=== PATIENT | female | born 1990 | race Two or more races ===

== ENCOUNTER 2022-08-21 15:50 | Outpatient (CLI) | payer MEDICAID ==
[2022-08-21 16:45] LABS: BASOPHILS # (AUTO) 0.1 10^3/uL (0.0-0.1); BASOPHILS % (AUTO) 0.7 %; EOSINOPHILS # (AUTO) 0.2 10^3/uL (0.0-0.7); EOSINOPHILS % (AUTO) 2.3 %; HCT - HEMATOCRIT 40.4 % (37.0-47.0); HGB - HEMOGLOBIN 13.2 g/dL (12.0-16.0); LYMPHOCYTES # (AUTO) 2.6 10^3/uL (1.5-3.5); LYMPHOCYTES % (AUTO) 33.6 %; MEAN CORPUSCULAR HEMOGLOBIN 28.1 pg (27.0-31.0); MEAN CORPUSCULAR HGB CONC 32.7 g/dL (32.0-36.0); MEAN CORPUSCULAR VOLUME 86.1 fL (81.0-99.0); MEAN PLATELET VOLUME 10.2 fL (7.9-10.8); MONOCYTES # (AUTO) 0.5 10^3/uL (0.0-1.0); NEUTROPHILS # (AUTO) 4.4 10^3/uL (1.5-6.6); NEUTROPHILS % (AUTO) 57.1 %; PLT - PLATELET COUNT 211 10^3/uL (130-450); RED BLOOD COUNT 4.69 10^6/uL (4.20-5.40); RED CELL DISTRIBUTION WIDTH 13.5 % (12.0-15.0); WHITE BLOOD COUNT 7.7 x10^3/uL (4.8-10.8)
[2022-08-23 05:13] LABS: HBsAG SCREEN Negative (Negative); HCV AB Non Reactive (Non Reactive); HIV SCREEN 4TH GENERATION Non Reactive (Non Reactive)
[2022-08-23 08:10] LABS: RPR Non Reactive (Non Reactive)
[2022-08-23 20:08] LABS: VARICELLA-ZOSTER AB IGG 173 index (Immune >165)
== END 2022-08-21 15:51 | disposition home or self-care (01) ==
LOC: LAB 15:50
PROVIDERS: ATTEND Nurse Practitioner
DX: Z32.01 Encounter for pregnancy test, result positive (principal)
CPT/HCPCS: 36415; 84702; 85025; 86592; 86762; 86787; 86803; 86850; 86900; 86901; 87086; 87340; 87389

== ENCOUNTER 2022-08-22 08:00 | Outpatient (CLI) | payer MEDICAID | END 2022-08-22 23:59 | disposition home or self-care (01) | LOC: LAB.WC 08:00 | PROVIDERS: ATTEND Nurse Practitioner | DX: Z32.01 Encounter for pregnancy test, result positive (principal) | CPT/HCPCS: 87086 ==

== ENCOUNTER 2022-08-24 18:12 | Outpatient (CLI) | payer MEDICAID ==
[2022-08-24 18:57] LABS: BASOPHILS % (AUTO) 0.5 %; EOSINOPHILS # (AUTO) 0.2 10^3/uL (0.0-0.7); EOSINOPHILS % (AUTO) 2.5 %; HGB - HEMOGLOBIN 12.8 g/dL (12.0-16.0); LYMPHOCYTES # (AUTO) 2.7 10^3/uL (1.5-3.5); LYMPHOCYTES % (AUTO) 33.3 %; MEAN CORPUSCULAR HEMOGLOBIN 28.3 pg (27.0-31.0); MEAN CORPUSCULAR HGB CONC 32.8 g/dL (32.0-36.0); MEAN CORPUSCULAR VOLUME 86.3 fL (81.0-99.0); MEAN PLATELET VOLUME 10.1 fL (7.9-10.8); MONOCYTES # (AUTO) 0.5 10^3/uL (0.0-1.0); MONOCYTES % (AUTO) 5.9 %; NEUTROPHILS # (AUTO) 4.7 10^3/uL (1.5-6.6); NEUTROPHILS % (AUTO) 57.6 %; PLT - PLATELET COUNT 215 10^3/uL (130-450); RED BLOOD COUNT 4.52 10^6/uL (4.20-5.40); RED CELL DISTRIBUTION WIDTH 13.6 % (12.0-15.0); WHITE BLOOD COUNT 8.2 x10^3/uL (4.8-10.8)
[2022-08-26 02:07] LABS: HIV SCREEN 4TH GENERATION Non Reactive (Non Reactive)
[2022-08-26 06:10] LABS: HBsAG SCREEN Negative (Negative); HCV AB Non Reactive (Non Reactive)
[2022-08-26 07:09] LABS: RPR Non Reactive (Non Reactive)
[2022-08-26 12:08] LABS: VARICELLA-ZOSTER AB IGG 152 index (Immune >165)
== END 2022-08-24 18:13 | disposition home or self-care (01) ==
LOC: LAB 18:12
PROVIDERS: ATTEND Nurse Practitioner
DX: Z32.01 Encounter for pregnancy test, result positive (principal)
CPT/HCPCS: 36415; 84702; 85025; 86592; 86762; 86787; 86803; 86850; 86900; 86901; 87340; 87389

== ENCOUNTER 2022-08-28 21:49 | Emergency (ER) | payer MEDICAID ==
--- NOTE | 2022-08-28 22:05 | ED Physician Documentation ---
PD HPI HEENT - Stated complaint Stated Complaint: R TOOTH PAIN - History obtained from History obtained from: Patient - Additional information Additional information: HPI from patient. Patient complains of few days of right sided tooth pain. She cannot localize it to anyone tooth, but generally feels it involves one or more of the right maxillary molars (she is pointing to these teeth rather than verbalizing specific teeth). Since this morning, she has had significantly worsening pain in the area which, during the day, has spread to involve the right jaw. There is no visible swelling. Patient denies fever. The pain is worse with chewing, palpation of the right upper teeth, and patient says even air passing over the teeth exacerbates the pain. Patient is approximately 5 weeks . Patient used Tylenol without relief. She had noticeable but transient/brief pain relief with Orajel and an wedh-leo-[id number] clove extract preparation. Review of Systems Constitutional: denies: Fever Throat: reports: Dental pain / toothache. denies: Sore throat PD PAST MEDICAL HISTORY - Past Medical History Past Medical History: No - Present Medications Home Medications: Ambulatory Orders Medication Instructions Recorded Confirmed Acetaminophen [Tylenol] 650 mg PO Q6H PRN #30 tab 07/17/22 Ibuprofen [Motrin] 800 mg PO Q8H PRN #30 tablet 07/17/22 methocarbamoL [Robaxin] 500 mg PO Q6H PRN #20 tablet 07/17/22 Acetaminophen/Cod 300/30 [Tylenol 1 - 2 each PO Q4-6H PRN #14 tablet 08/28/22 #3] Amox/Clav 875/125 [Augmentin 1 tablet PO Q12H 5 Days #10 tablet 08/28/22 875/125 Tab] - Allergies Allergies/Adverse Reactions: Allergies Allergy/AdvReac Type Severity Reaction Status Date / Time No Known Drug Allergies Allergy Verified 08/08/22 11:41 PD ED PE NORMAL - Vitals Vital signs reviewed: Yes - General General: Alert and oriented X 3, No acute distress, Well developed/nourished - HEENT HEENT: Moist mucous membranes PD ED PE EXPANDED - HEENT HEENT: Dentition normal, Other (overall good dentition with some fillings noted. There is a filling in place in #6 which is tender to percussion. There is no gingival swelling, erythema, or fluctuance. symmetric fascies) Results - Vitals Vitals: Vital Signs - 24 hr 08/28/22 21:55 Temperature 36.5 C Heart Rate 78 Respiratory 16 Rate Blood Pressure 127/76 O2 Saturation 100 Oxygen O2 Source Room air PD Medical Decision Making - ED course Complexity details: considered differential, d/w patient ED course: Patient complains of dental pain with an unremarkable physical exam except for significant tenderness to percussion of tooth #6. Although there is no overt evidence of dental infection, she is being provided a dose of Augmentin in the E D and a 5-day, twice daily course for same to cover possible infectious etiology. We discussed options for pain control, in particular in setting of . Shared decision making regarding risks and benefits of the various analgesics that I can provide resulted in decision to provide prescription for Tylenol #3 with first dose in the emergency department (patient is being driven home). Return precautions are discussed, and I advised her to continue to pursue follow-up with a dentist, next available appointment. I am prescribing a short course of short-acting opioid pain medication for this patient. I have reviewed the patients BROADLOOM WEAVER and no concerning findings were noted. I have discussed that the opioids are for short term therapy only, and will not be refilled from the ED. Departure - Departure Disposition: 01 Home, Self Care Clinical Impression: Toothache Condition: Good Instructions: ED Tooth Pain Prescriptions: Amox/Clav 875/125 [Augmentin 875/125 Tab] 1 tablet PO Q12H 5 Days #10 tablet Acetaminophen/Cod 300/30 [Tylenol #3] 1 - 2 each PO Q4-6H PRN #14 tablet PRN Reason: Pain 5-7 Comments: I have electronically submitted prescriptions for Augmentin (antibiotic) and Tylenol #3 (Tylenol with codeine) to the [facility] in [place]. Follow-up with your dentist, next available appointment, for reevaluation. If you take Tylenol in addition to the Tylenol #3, be sure to keep track of the total/combined amount of tylenol you are taking and not to exceed the daily recommended maximum dose of acetaminophen (4,000 mg). I am prescribing a short course of narcotic pain medication for you. These are potentially dangerous and addictive medications that should be used carefully. These medications may constipate you. Take an ddjg-kso-fgfmqab stool softener (docusate) twice daily with plenty of water while taking these medications. If you go 24 hours without a bowel movement, take yque-fcf-[id number] miralax, per package instructions. Do not drink or drive while taking these medications. If you received narcotic or sedating medications while in the emergency department, do not drive for 24 hours. Store this medication in a safe, secure place and out of reach of children. It is a violation of federal law to give or sell this medication to another person or to use in a manner other than prescribed. The ED will not refill narcotic prescriptions, including prescriptions lost or stolen. To dispose of unwanted medications: 1. [facility] at [address] in [place] has a medication drop box. They accept prescription medications (in pill form) Sunday through Sunday 9:00 a.m. to 5:00 p.m. 2. The [facility] [employer] accepts prescription medications (in pill form only) for disposal year round. Call for more information. 3. Contact the [facility] for the next [facility] sponsored prescription drug collection event. , [phone], or [phone]; Discharge Date/Time: 08/28/22 23:14
[2022-08-28 22:07] VITALS: BP 127/76
[2022-08-28] MEDS ORDERED: ACETAMINOPHEN/CODEINE 300 MG/30 MG TABLET PO STA (22:27)
[2022-08-28] MEDS ORDERED: AMOX/CLAV 875 MG/125 MG TABLET PO STA (22:27)
== END 2022-08-28 23:14 | disposition home or self-care (01) ==
LOC: ED 21:49
DX: O26.891 Other specified pregnancy related conditions, first trimester (principal); Z3A.01 Less than 8 weeks gestation of pregnancy; K08.89 Other specified disorders of teeth and supporting structures
CPT/HCPCS: 99282; 99283; A9270

== ENCOUNTER 2022-09-07 19:16 | Outpatient (CLI) | payer MEDICAID ==
--- NOTE | 2022-09-08 10:26 | Ultrasound Report ---
PROCEDURE: OB First Trimester w/TV INDICATIONS: POSITIVE TEST OUTSIDE/PRIOR DATING DATA: Last menstrual period (LMP): Unknown. LMP-based estimated date of delivery ([place]): N/A. First dating scan (date and location): 09/07/2022. Estimated date of delivery ([place]) from first dating scan: 04/28/2023. TECHNIQUE: Real-time scanning was performed of the fetuses and maternal pelvic organs, with image documentation. Endovaginal scanning: Performed for better visualization of the fetuses and maternal adnexal structu res. COMPARISON: None. FINDINGS: GENERAL: An intrauterine diamniotic dichorionic twin is present, as evidenced by separate p lacental sites and/or intervening membrane thickness of greater than 2 mm at this early gestational a ge. Gestational sac hemorrhage is seen measuring up to 2.4 x 1.7 x 2.7 cm. Embryo A: pole is seen with crown-rump length of 0.6 cm, giving an estimated gestational age o f 6 weeks 3 days. Heart rate: 117 beats per minute Embryo B: pole is seen with crown-rump length of 0.8 cm, giving an estimated gestational age o f 6 weeks 5 days. Heart rate: 129 bpm Measurement variability in dating: +/- 4 weeks by LMP, +/- 7 days by mean sac diameter (use before 6 weeks gestation if crown-rump length not able to be measured), +/- 5 days by crown-rump length (6-12 weeks gestation). Maternal organs: There appears to be 2 corpus luteum type cysts in the right ovary. IMPRESSION: Live intrauterine dichorionic diamniotic twin . Estimated gestational age of the larger twin is 6 weeks 5 days, giving an ultrasound [place] of 04/28/2023. Reviewed by: Carlyle Horne MD on 09/08/2022 10:25 AM PDT Approved by: Carlyle Horne MD on 09/08/2022 10:25 AM PDT Station ID: [id number]
== END 2022-09-07 19:17 | disposition home or self-care (01) ==
LOC: DI 19:16
PROVIDERS: ATTEND Nurse Practitioner
DX: O30.041 Twin pregnancy, dichorionic/diamniotic, first trimester (principal); Z3A.01 Less than 8 weeks gestation of pregnancy

== ENCOUNTER 2022-09-18 08:00 | Outpatient (CLI) | payer MEDICAID ==
[2022-09-18 18:13] LABS: CHLAMYDIA TRACHOMATIS DNA NEGATIVE (NEGATIVE); NEISSERIA GONORRHOEAE DNA NEGATIVE (NEGATIVE); TRICHOMONAS VAGINALIS DNA NEGATIVE (NEGATIVE)
== END 2022-09-18 23:59 | disposition home or self-care (01) ==
LOC: LAB.WC 08:00
PROVIDERS: ATTEND Nurse Practitioner
DX: Z11.3 Encounter for screening for infections with a predominantly sexual mode of transmission (principal)
CPT/HCPCS: 87491; 87591; 87661

== ENCOUNTER 2022-09-27 10:00 | Outpatient (CLI) | payer MEDICAID | END 2022-09-27 10:15 | disposition home or self-care (01) | LOC: LAB.N 10:00 | PROVIDERS: ATTEND Family Medicine | DX: N36.8 Other specified disorders of urethra (principal) | CPT/HCPCS: 87255 ==

== ENCOUNTER 2022-10-31 10:19 | Emergency (ER) | payer MEDICAID ==
--- NOTE | 2022-10-31 11:10 | ED Physician Documentation ---
PD HPI URI - Stated complaint Stated Complaint: C+ VOMITING/SOA - Chief complaint Chief Complaint: Abd Pain - History obtained from History obtained from: Patient - History of Present Illness Timing - onset: Yesterday Timing duration: Days (2) Timing details: Abrupt onset, Still present Associated symptoms: Fever, Chills, Dry cough, NVD (nausea and vomiting repetitively since yesterday into today. No diarrhea.) Contributing factors: No: Sick contact, COPD / asthma Improves by: No: Medication Similar symptoms before: Has not had sx before Review of Systems Constitutional: reports: Fever, Chills, Myalgias Nose: reports: Rhinorrhea / runny nose, Congestion Throat: denies: Sore throat Cardiac: denies: Chest pain / pressure Respiratory: reports: Dyspnea, Cough. denies: Wheezing GI: reports: Nausea, Vomiting. denies: Diarrhea : reports: Now EGA (14-15 weeks with twins.). denies: Vaginal bleeding Neurologic: reports: Generalized weakness. denies: Near syncope, Altered mental status, Headache PD PAST MEDICAL HISTORY - Past Medical History Past Medical History: No Cardiovascular: None Respiratory: None Neuro: None Endocrine/Autoimmune: None GI: None EMPLOYMENT MANAGER: None : None HEENT: None Musculoskeletal: None Derm: None - Past Surgical History Past Surgical History: No - Present Medications Home Medications: Ambulatory Orders Medication Instructions Recorded Confirmed Acetaminophen [Tylenol] 650 mg PO Q6H PRN #30 tab 07/17/22 Ibuprofen [Motrin] 800 mg PO Q8H PRN #30 tablet 07/17/22 methocarbamoL [Robaxin] 500 mg PO Q6H PRN #20 tablet 07/17/22 Acetaminophen/Cod 300/30 [Tylenol 1 - 2 each PO Q4-6H PRN #14 tablet 08/28/22 #3] Amox/Clav 875/125 [Augmentin 1 tablet PO Q12H 5 Days #10 tablet 08/28/22 875/125 Tab] Albuterol Sulf [Ventolin Hfa 1 - 2 puffs INH Q4HR PRN #1 each 10/31/22 Inhaler] Ondansetron Odt [Zofran] 4 mg TL Q6H PRN #10 tablet 10/31/22 Ondansetron Odt [Zofran] 4 mg TL Q6H PRN #20 tablet 10/31/22 - Allergies Allergies/Adverse Reactions: Allergies Allergy/AdvReac Type Severity Reaction Status Date / Time No Known Drug Allergies Allergy Verified 10/31/22 10:40 - Social History Does the pt smoke?: No Smoking Status: Never smoker Does the pt drink ETOH?: No Does the pt have substance abuse?: Yes Substance Use and Type: Marijuana, CBD oil / Products - Immunizations Immunizations are current?: Yes PD ED PE NORMAL - Vitals Vital signs reviewed: Yes - General General: Alert and oriented X 3, No acute distress, Well developed/nourished - HEENT HEENT: Pharynx benign. No: Moist mucous membranes - Neck Neck: Supple, no meningeal sign, No adenopathy - Cardiac Cardiac: RRR, No murmur - Respiratory Respiratory: Clear bilaterally - Abdomen Abdomen: Soft, Non tender, Other (bedside US showing twins with size c/w dates, movement of both, and normal visualized heart beats.) - Female Female : Deferred - Rectal Rectal: Deferred - Back Back: No CVA TTP - Derm Derm: Normal color, Warm and dry - Neuro Neuro: Alert and oriented X 3, No motor deficit, Normal speech Results - Vitals Vitals: Vital Signs - 24 hr 10/31/22 10/31/22 10/31/22 10:36 14:03 15:36 Temperature 36.6 C 37.2 C Heart Rate 95 92 75 Respiratory 22 15 19 Rate Blood Pressure 138/79 H 130/83 H 138/78 H O2 Saturation 100 99 99 Oxygen O2 Source Room air - Labs Labs: Laboratory Tests 10/31/22 11:50 Sodium 132 L Potassium 3.4 L Chloride 103 Carbon Dioxide 22 Anion Gap 7.0 BUN 4 L Creatinine 0.5 L Estimated GFR (MDRD) 144 Glucose 81 Calcium 9.0 Magnesium 1.5 L Total Bilirubin 0.2 AST 19 ALT 22 Alkaline Phosphatase 53 Total Protein 6.7 Albumin 3.7 Globulin 3.0 Albumin/Globulin Ratio 1.2 Lipase 18 PD Medical Decision Making - ED course Complexity details: reviewed results, considered differential, d/w patient, d/w advanced manufacturing consultant (I talked with on-call MEDICAL I D SALES. The provided provider stated there not typically doing Paxlovid for with the current time.) Reviewed Lab Results: The patient's electrolytes and blood sugar and kidney function show low potassium and magnesium. Can give supplement in ER. I did do a bedside ultrasound which showed the presence of both fetuses in good position with movement and heart rates visible. Patient given 2 liters IV lfuid for hydration. Zofran and Toradol for symptoms. Feeling improved. Will treat symptoms with zofran, albuterol. Leaning against Paxlovid as less useful with current variants and MEDICAL I D SALES said not using much in persons currently. She is feeling better and hungry after IV fluids and meds here. Departure - Departure Disposition: 01 Home, Self Care Clinical Impression: COVID, Hypokalemia, Hypomagnesemia, Dehydration Nausea and vomiting Qualifiers: Vomiting type: unspecified Qualified Code(s): R11.2 - Nausea with vomiting, unspecified Dyspnea Qualifiers: Dyspnea type: shortness of breath Qualified Code(s): R06.02 - Shortness of breath Qualifiers: Weeks of gestation: 14 weeks Qualified Code(s): Z3A.14 - 14 weeks gestation of Condition: Stable Record reviewed to determine appropriate education?: Yes Follow-Up: Zaynab Chavez ARNP [Primary Care Provider] - Prescriptions: Albuterol Sulf [Ventolin Hfa Inhaler] 1 - 2 puffs INH Q4HR PRN #1 each PRN Reason: Shortness Of Air/Wheezing Ondansetron Odt [Zofran] 4 mg TL Q6H PRN #20 tablet PRN Reason: Nausea / Vomiting Ondansetron Odt [Zofran] 4 mg TL Q6H PRN #10 tablet PRN Reason: Nausea / Vomiting Comments: Continue with your usual medications. Small frequent fluids to maintain hydration. You were given IV fluids as well as medication for nausea here. You are given a some supplemental magnesium and potassium as these were the low normal on your blood test. Have potassium containing foods in your diet over the next week or so. Continue your magnesium supplement. Ondansetron/Zofran if needed for nausea. I would suggest your an albuterol inhaler 2 puffs 3-4 times daily over the next week or so to help with breathing and extra times if needed. Return to the ER or follow-up with your MEDICAL I D SALES if generally worsening symptoms. Otherwise expect illness for probably 5 to 7 days with the COVID. I did provide a work note. I sent your prescriptions up to your preferred pharmacy. I talked with the on-call MEDICAL I D SALES and the opinion was that they are not using antiviral medicines currently with the COVID strains. The antivirals such as Paxlovid are less effective with the more current strains of COVID. Forms: PCP List, Activity restrictions Discharge Date/Time: 10/31/22 15:37
[2022-10-31] MEDS ORDERED: KETOROLAC 15 MG/ML VIAL IVP STA (11:33)
[2022-10-31] MEDS ORDERED: SODIUM CHLORIDE 0.9% 1,000 ML IV STA ×2 (11:33→11:34)
[2022-10-31 12:11] LABS: ALBUMIN 3.7 g/dL (3.2-5.5); ALBUMIN/GLOBULIN RATIO 1.2 (1.0-2.2); BILIRUBIN,TOTAL 0.2 mg/dL (0.2-1.0); CREATININE 0.5 mg/dL (0.6-1.3); MAGNESIUM 1.5 mg/dL (1.7-2.3); POTASSIUM 3.4 mmol/L (3.5-4.5); TOTAL PROTEIN 6.7 g/dL (6.4-8.9)
[2022-10-31] MEDS: ONDANSETRON 4 MG/2 ML VIAL IVP STA (12:27)
[2022-10-31] MEDS ORDERED: POTASSIUM BICARB 25 MEQ TABLET PO STA (13:19)
[2022-10-31] MEDS ORDERED: MAGNESIUM SULFATE 2 GRAM 2 GM/50 ML BAG IV ONE (13:19)
[2022-10-31 14:07] VITALS: O2SAT 99
[2022-10-31 15:46] VITALS: BP 138/78
== END 2022-10-31 15:37 | disposition home or self-care (01) ==
LOC: ED 10:19
DX: O98.512 Other viral diseases complicating pregnancy, second trimester (principal); U07.1 COVID-19; Z3A.14 14 weeks gestation of pregnancy; O26.892 Other specified pregnancy related conditions, second trimester; E83.42 Hypomagnesemia; R06.02 Shortness of breath; O21.1 Hyperemesis gravidarum with metabolic disturbance
CPT/HCPCS: 36415; 80053; 83690; 83735; 96361; 96365; 96375; 99283; 99284; A9270

== ENCOUNTER 2023-01-02 12:42 | Outpatient (CLI) | payer MEDICAID ==
--- NOTE | 2023-01-02 18:22 | Ultrasound Report ---
PROCEDURE: OB F/U or Repeat INDICATIONS: DICHORIONIC DIAMNIOTIC TWIN OUTSIDE/PRIOR DATING DATA: Last menstrual period (LMP): 07/31/2022. LMP-based estimated date of delivery ([place]): 04/07/2023. First dating scan (date and location): 09/07/2022. Estimated date of delivery ([place]) from first dating scan: 04/28/2023. The below data below was generated using the ultrasound [place] of 04/28/2023 TECHNIQUE: Real-time scanning was performed of the fetus, with image documentation and biometric measurements. Endovaginal scanning: Not performed. COMPARISON: 12/11/2022 FINDINGS: General: An intrauterine dichorionic-diamniotic twin is present, as evidenced by separate placentas, differing sexes, or an intervening membrane of greater than 2 mm. Maternal cervical canal: 4.9 cm; normal length is 2.5 cm or more. FETUS A: Fetus is in vertex presentation. Amniotic fluid index: 16.7 cm Largest amniotic fluid pocket: 5.1 cm, normal is 2-8 cm. Placental position is anterior, without previa. heart rate: 145 beats per minute. biometrics: Biparietal diameter: 5.6 cm, 23 weeks 1 day Head circumference: 20.4 cm, 22 weeks 1 day Abdominal circumference: 18.5 cm, 23 weeks 2 days Femur length: 4.2 cm, 23 weeks 6 days Estimated gestational age from initial scan: 23 weeks 3 days Composite gestational age from present scan: 23 weeks 2 days Estimated weight and percentile: 595 g, 42nd percentile Measurement variability in biometric dating: +/- 10 days from 12-20 weeks gestation, +/- 2 weeks from 20-30 weeks gestation, +/- 3 weeks at 30 weeks gestation or later. Fetus A is female. profile, four-chamber heart, and cardiac outflow tracts are all within normal limits. Not previously well seen. FETUS B: Fetus is in variable presentation. Amniotic fluid index: 15.2 cm Largest amniotic fluid pocket: 6.4 cm, normal is 2-8 cm. Placental position is posterior without previa. heart rate: 157 beats per minute. biometrics: Biparietal diameter: 5.6 cm, 23 weeks 0 days Head circumference: 21.2 cm, 23 weeks 2 days Abdominal circumference: 18.8 cm, 23 weeks 4 days Femur length: 4.2 cm, 23 weeks 3 days Estimated gestational age from initial scan: 23 weeks 3 days Composite gestational age from present scan: 23 weeks 3 days Estimated weight and percentile: 602 g, 46th percentile Measurement variability in biometric dating: +/- 10 days from 12-20 weeks gestation, +/- 2 weeks from 20-30 weeks gestation, +/- 3 weeks at 30 weeks gestation or later. Fetus B is male Fetus B nose and lips are within normal limits, previously not well seen IMPRESSION: 1. Living diamniotic dichorionic twin with normal interval growth and no sonographic eviden ce of complications. Current age of both fetuses is concordant with clinical age based on initial fir st trimester ultrasound. 2. Successful completion of normal anatomy survey of both twins. Reviewed by: Jose Segura MD on 01/02/2023 6:20 PM PDT Approved by: Jose Segura MD on 01/02/2023 6:20 PM PDT Station ID: [id number]
== END 2023-01-02 12:43 | disposition home or self-care (01) ==
LOC: DI 12:42
PROVIDERS: ATTEND Obstetrics & Gynecology
DX: O30.042 Twin pregnancy, dichorionic/diamniotic, second trimester (principal); Z3A.23 23 weeks gestation of pregnancy

== ENCOUNTER 2023-02-09 10:24 | Outpatient (CLI) | payer MEDICAID ==
--- NOTE | 2023-02-09 12:13 | PROVIDER PROGRESS NOTE ---
- HPI Chief Complaint: Decreased movement - Procedures OB Procedure Performed: NST Diagnosis/Indication for NST: Decreased movement Service Date of procedure: 02/09/23 (Read: 02/09/2023) - Plan Plan: Patient is a 74-yp[age]-year-old -0-3-4 at 28 weeks 6 days gestation presenting to triage for decreased movement. She has no leaking or bleeding. She denies headache, right upper quadrant pain, changes in vision. She does say that baby is moving a lot and baby A is the one that is decreased. Physical Exam Constitutional: alert, no acute distress, well hydrated, well developed, well nourished, appropriate dress. Cardiovascular: Regular rate and rhythm. Respiratory: no respiratory distress. Abdomen: nondistended, nontender, no guarding. Psych: affect and mood appropriate, normal interaction, good eye contact. Ultrasound confirmation of heart rate and movement. Normal amniotic fluid index. Difficult to get NST due to movement NST: A: 145 beats per baseline, moderate variability, accelerations present, no decelerations. Reactive NST. B: 140 beats per baseline, moderate variability, accelerations present, no decelerations. Reactive NST. [place]: Quiescent Assessment and plan Decreased movements. -Discussed movement expectations at 28 weeks. Can be difficult to distinguish between twins. -Reassuring NST and bedside ultrasound. Follow-up in clinic.
[2023-02-09 13:53] VITALS: BP 122/79
== END 2023-02-09 12:40 | disposition home or self-care (01) ==
LOC: WFO 10:24 → FBP 10:26 → WFO 12:40
PROVIDERS: ATTEND Obstetrics & Gynecology
DX: O36.8130 Decreased fetal movements, third trimester, not applicable or unspecified (principal); O30.003 Twin pregnancy, unspecified number of placenta and unspecified number of amniotic sacs, third trimester; Z3A.28 28 weeks gestation of pregnancy
CPT/HCPCS: 59025; 99215

== ENCOUNTER 2023-02-21 10:35 | Outpatient (CLI) | payer MEDICAID | END 2023-02-21 10:36 | disposition home or self-care (01) | LOC: LAB 10:35 | PROVIDERS: ATTEND Obstetrics & Gynecology | DX: O30.042 Twin pregnancy, dichorionic/diamniotic, second trimester (principal); O99.212 Obesity complicating pregnancy, second trimester; O34.211 Maternal care for low transverse scar from previous cesarean delivery | CPT/HCPCS: 80053; 82570; 82728; 82950; 83036; 84156; 84550; 85027; 86850 ==

== ENCOUNTER 2023-03-04 17:21 | Outpatient (CLI) | payer MEDICAID ==
[2023-03-04 19:34] VITALS: BP 133/86
[2023-03-04 19:35] LABS: BILIRUBIN,URINE NEGATIVE (NEGATIVE); GLUCOSE, URINE (UA) NEGATIVE (NEGATIVE); KETONES,URINE (UA) NEGATIVE (NEGATIVE); LEUKOCYTE ESTERASE, URINE SMALL (NEGATIVE); NITRITE,URINE NEGATIVE (NEGATIVE); OCCULT BLOOD,URINE NEGATIVE (NEGATIVE); PROTEIN,URINE NEGATIVE (NEGATIVE); UROBILINOGEN,URINE 0.2 (NORMAL) E.U./dL (NORMAL)
[2023-03-04 19:45] LABS: CLARITY,URINE HAZY (CLEAR)
[2023-03-04 19:47] LABS: BACTERIA,URINE None Seen /HPF (None Seen); RBC,URINE None Seen /HPF (0-5); SQUAMOUS EPITHELIAL CELL,UR FEW Squamous (<= Few); WBC,URINE 0-3 /HPF (0-5)
[2023-03-04 21:04] LABS: CHLAMYDIA TRACHOMATIS DNA NEGATIVE (NEGATIVE); NEISSERIA GONORRHOEAE DNA NEGATIVE (NEGATIVE)
[2023-03-04 21:06] LABS: BACTERIAL VAGINOSIS DNA NEGATIVE (NEGATIVE); CANDIDA GLABRATA DNA NEGATIVE (NEGATIVE); CANDIDA GROUP DNA POSITIVE (NEGATIVE); CANDIDA KRUSEI DNA NEGATIVE (NEGATIVE); TRICHOMONAS VAGINALIS DNA NEGATIVE (NEGATIVE)
--- NOTE | 2023-03-05 07:01 | PROVIDER PROGRESS NOTE ---
- HPI Chief Complaint: Vaginal bleeding Current : Current EDU 04/28/23 Gestation 32 Weeks and 1 Days 8 Para 4 Vital Signs Temperature 97.3 F L 03/04/23 19:20 Heart Rate 92 03/04/23 19:20 Respiratory Rate 18 03/04/23 19:20 Blood Pressure 133/86 H 03/04/23 19:20 Temperature 97.3 F L 03/04/23 19:20 Heart Rate 92 03/04/23 19:20 Respiratory Rate 18 03/04/23 19:20 Blood Pressure 133/86 H 03/04/23 19:20 O2 Saturation If not protocol: Oxygen Flow, liters/minute - Procedures NST Procedure: NST Procedure Start Date 03/04/23 Start Time 18:04 Stop Time 19:00 Vibroacoustic Stimulation Used No Patient States Movement Yes: Vaginal Bleeding Procedure Details: Patient is a 32-year-old at 31 weeks 1 day gestation presenting for vaginal bleeding. She had one episode earlier today when she was wiping that seemed more than spotting. It did not continue. She has not had any blood in her underwear. Good movement. No leaking other fluid. She does say she had one episode last week, but thought it felt like a scratch on her labia and thought it was external bleeding. She does say she has had some vaginal itching. No dysuria. Physical Exam: General: Alert, oriented, no acute distress Abdomen: Gravid, non tender. SSE: No bleeding. No pooling or valsalva. Small amount of thick, white discharge. Cervix visually closed FHT: A: 150 bpm baseline, moderate variability, accelerations present, no decelerations. Reactive NST B:140 bpm baseline, moderate variability, accelerations present, no decelerations. Reactive NST. [place]: Quiescent Labs: Postive for ramakrishna. Urine culture pending. Plan 32-year-old at 31 weeks with ramakrishna vaginitis. 1. Vaginal bleeding -No immediate concern. Likely from infection/irritating process -Return if worsens. Discussed bleeding precautions. 2. Vaginal candidiasis -Will try OTC treatment 3. 31 weeks gestation -[facility] 4. di-di twins -Reassuring FHT.
== END 2023-03-04 19:05 | disposition home or self-care (01) ==
LOC: WFO 17:21 → FBP 17:23 → WFO 19:05
PROVIDERS: ATTEND Obstetrics & Gynecology
DX: O46.93 Antepartum hemorrhage, unspecified, third trimester (principal); O98.813 Other maternal infectious and parasitic diseases complicating pregnancy, third trimester; B37.31 Acute candidiasis of vulva and vagina; Z3A.31 31 weeks gestation of pregnancy; O30.043 Twin pregnancy, dichorionic/diamniotic, third trimester
CPT/HCPCS: 59025; 81001; 81003; 81514; 87086; 87491; 87591; 87661; 99214; 99215

== ENCOUNTER 2023-03-07 10:12 | Outpatient (CLI) | payer MEDICAID ==
[2023-03-07 10:55] LABS: CREATININE,URINE 121.6 mg/dL; PROTEIN/CREATININE RATIO,URINE 0.2 (<=0.2)
[2023-03-07 11:34] LABS: HCT - HEMATOCRIT 36.4 % (37.0-47.0); HGB - HEMOGLOBIN 11.6 g/dL (12.0-16.0); MEAN CORPUSCULAR HEMOGLOBIN 26.9 pg (27.0-31.0); MEAN CORPUSCULAR HGB CONC 31.9 g/dL (32.0-36.0); MEAN CORPUSCULAR VOLUME 84.3 fL (81.0-99.0); MEAN PLATELET VOLUME 10.6 fL (7.9-10.8); RED BLOOD COUNT 4.32 10^6/uL (4.20-5.40); RED CELL DISTRIBUTION WIDTH 15.9 % (12.0-15.0); WHITE BLOOD COUNT 10.8 x10^3/uL (4.8-10.8)
[2023-03-07 12:02] LABS: ALBUMIN 3.6 g/dL (3.2-5.5); ALBUMIN/GLOBULIN RATIO 1.2 (1.0-2.2); BILIRUBIN,TOTAL 0.2 mg/dL (0.2-1.0); CALCIUM 9.1 mg/dL (8.5-10.3); CREATININE 0.4 mg/dL (0.6-1.3); POTASSIUM 3.4 mmol/L (3.5-4.5); TOTAL PROTEIN 6.6 g/dL (6.4-8.9); URIC ACID 3.7 mg/dL (2.3-6.6)
[2023-03-07 13:11] LABS: ESTIMATED AVERAGE GLUCOSE 97 mg/dL (70-100); FERRITIN 9.2 ng/mL (11.0-306.8)
[2023-03-13 10:07] LABS: AFP MOM See interpretation. (.); AFP VALUE 269.4 ng/mL (.); GESTAT. AGE METHOD As provided (.); INSULIN DEP DIABETES No (.); MATERNAL AGE AT EDD 31.8 yr (.); MULTIPLE GESTATION Twins (.); OPEN SPINA BIFIDA RISK 1 IN See interpretation. (.); RACE Other (.); RESULTS Report (.); TEST RESULTS See interpretation. (.)
== END 2023-03-07 10:13 | disposition home or self-care (01) ==
LOC: LAB 10:12
PROVIDERS: ATTEND Obstetrics & Gynecology
DX: O30.042 Twin pregnancy, dichorionic/diamniotic, second trimester (principal); O99.212 Obesity complicating pregnancy, second trimester; O09.892 Supervision of other high risk pregnancies, second trimester; O34.211 Maternal care for low transverse scar from previous cesarean delivery
CPT/HCPCS: 36415; 80053; 82105; 82570; 82728; 82950; 83036; 84156; 84550; 85027; 86850

== ENCOUNTER 2023-03-09 20:58 | Outpatient (CLI) | payer MEDICAID ==
--- NOTE | 2023-03-10 07:56 | Ultrasound Report ---
PROCEDURE: OB 14+ Weeks INDICATIONS: DICHORIONIC DIAMNIOTIC TWIN PREGNACY OUTSIDE/PRIOR DATING DATA: Last menstrual period (LMP): 07/31/2022. LMP-based estimated date of delivery ([place]): 04/07/2023. First dating scan (date and location): 09/07/2022. Estimated date of delivery ([place]) from first dating scan: 04/28/2023. TECHNIQUE: Real-time scanning was performed of the fetuses, with image documentation and biometric measurements. Endovaginal scanning: Not performed COMPARISON: None. FINDINGS: General: An intrauterine dichorionic-diamniotic twin is present, as evidenced by separate placentas, differing sexes, or an intervening membrane of greater than 2 mm. Composite amniotic fluid index: 14.9 cm. Maternal cervical canal not visualized. FETUS A: LEA: 13 cm. Placental position is cephalic, without previa. heart rate: 145 beats per minute. biometrics: Biparietal diameter: 8.2 cm, 33 weeks 0 days, 48th percentile Head circumference: 30.9 cm, 34 weeks 3 days, 56th percentile Abdominal circumference: 27.9 cm, 31 weeks 6 days, 24th percentile Femur length: 6.2 cm, 32 weeks 0 days, 18 percentile Estimated gestational age from initial scan: 32 weeks 6 days Composite gestational age from present scan: 32 weeks 2 days Estimated weight and percentile: 1945 g, 24th percentile Measurement variability in biometric dating: +/- 10 days from 12-20 weeks gestation, +/- 2 weeks from 20-30 weeks gestation, +/- 3 weeks at 30 weeks gestation or later. FETUS B: LEA: 14.9 cm. Placental position is posterior without previa. heart rate: 148 beats per minute. biometrics: Biparietal diameter: 8.1 cm, 32 weeks 4 days, 33rd percentile Head circumference: 30.6 cm, 34 weeks 0 days, 43rd percentile Abdominal circumference: 28.7 cm, 32 weeks 5 days, 46th percentile Femur length: 6.2 cm, 32 weeks 0 days, 17th percentile Estimated gestational age from initial scan: 32 weeks 6 days Composite gestational age from present scan: 32 weeks 4 days Estimated weight and percentile: 2012 g, 33rd percentile Measurement variability in biometric dating: +/- 10 days from 12-20 weeks gestation, +/- 2 weeks from 20-30 weeks gestation, +/- 3 weeks at 30 weeks gestation or later. IMPRESSION: Diamniotic, dichorionic, live twin at 32 weeks 6 days, [place] of 04/28/2023. Biometrics as above. Twin A: Estimated weight of 1945 g, 24th percentile. LEA of 13 cm. Twin B: Estimated weight of 2012 g, 33rd percentile. LEA of 14.9 cm. Reviewed by: Marshall Flores MD on 03/10/2023 7:55 AM PST Approved by: Marshall Flores MD on 03/10/2023 7:55 AM PST Station ID: [id number]
== END 2023-03-09 20:59 | disposition home or self-care (01) ==
LOC: DI 20:58
PROVIDERS: ATTEND Obstetrics & Gynecology
DX: O30.043 Twin pregnancy, dichorionic/diamniotic, third trimester (principal); Z3A.32 32 weeks gestation of pregnancy

== ENCOUNTER 2023-04-02 12:03 | Outpatient (CLI) | payer MEDICAID ==
[2023-04-02 13:00] VITALS: BP 126/77
[2023-04-02 15:02] VITALS: O2SAT 100
--- NOTE | 2023-04-02 15:02 | Ultrasound Report ---
PROCEDURE: OB Biophysical Profile INDICATIONS: Multiple gestation OUTSIDE/PRIOR DATING DATA: Last menstrual period (LMP): 07/31/2022. LMP-based estimated date of delivery ([place]): 04/07/2023. First dating scan (date and location): 09/07/2022. Estimated date of delivery ([place]) from first dating scan: 04/28/2023. The below data below was generated using the ultrasound [place] of 04/28/2023 TECHNIQUE: Real-time scanning was performed of the fetus, with image documentation and biometric jose m surements. Biophysical profile was also obtained. Endovaginal scanning: Performed COMPARISON: None. FINDINGS: General: Twin living intrauterine gestation is present. Presentation: Twin A vertex; Twin B transverse Placenta: Placental position is anterior (twin A) and posterior (twin B), without previa. Amniotic fluid index: Twin A 12.2 cm; Twin 8 14.1 cm. heart rate: 173 bpm (twin A) and 163 bpm (twin B. Maternal cervical canal: Not imaged. Estimated gestational age from initial scan: 36 weeks 2 days (Twin A and Twin B). Biophysical profile (twin A): Tone: 2 points. Movement: 2 points. Respiration: 2 points. Largest pocket of fluid: 2 points. Biophysical profile (twin B): Tone: 2 points. Movement: 2 points. Respiration: 2 points. Largest pocket of fluid: 2 points. IMPRESSION: Living intrauterine twin . Biophysical profile score for twin A is 8/8. Biophysical profile score for twin B is 8/8. Reviewed by: Martha Packer MD, PhD on 04/02/2023 3:01 PM PST Approved by: Martha Packer MD, PhD on 04/02/2023 3:01 PM PST Station ID: [id number]
--- NOTE | 2023-04-02 20:33 | PROCEDURE REPORT ---
- HPI Current 5 Para 4 Vital Signs Temperature 98.4 F 04/02/23 12:41 Heart Rate 109 H 04/02/23 12:41 Respiratory Rate 18 04/02/23 12:41 Blood Pressure 126/77 04/02/23 12:41 O2 Saturation 100 04/02/23 12:41 Temperature 99.3 F 04/02/23 12:43 Heart Rate 110 H 04/02/23 12:43 Respiratory Rate 18 04/02/23 12:43 Blood Pressure 126/77 04/02/23 12:43 O2 Saturation 100 04/02/23 12:41 If not protocol: Oxygen Flow, liters/minute - NST Procedure NST Procedure Start Date 04/02/23 Start Time 12:19 Stop Time 13:22 Vibroacoustic Stimulation Used No Patient States Movement Yes NST of 2 babies. unable to get them on monitor consistently enough to evaluate them. - Results and Plan Findings/Impression: NST not able to evaluate Plan: BPP ordered and was done and 10/24 for both babies. return for uls for grwoth and bpps.
== END 2023-04-02 14:40 | disposition home or self-care (01) ==
LOC: WFO 12:03 → FBP 12:29 → WFO 14:40
PROVIDERS: ATTEND Obstetrics & Gynecology
DX: O30.043 Twin pregnancy, dichorionic/diamniotic, third trimester (principal); Z3A.36 36 weeks gestation of pregnancy
CPT/HCPCS: 59025; 99215

== ENCOUNTER 2023-04-03 16:10 | Observation (INO) | payer MEDICAID ==
[2023-04-03] MEDS ORDERED: LACTATED RINGERS 1,000 ML IV ONE (17:06)
[2023-04-03 18:11] LABS: BILIRUBIN,URINE NEGATIVE (NEGATIVE); CLARITY,URINE CLEAR (CLEAR); GLUCOSE, URINE (UA) NEGATIVE (NEGATIVE); KETONES,URINE (UA) >=80 mg/dL (NEGATIVE); LEUKOCYTE ESTERASE, URINE TRACE (NEGATIVE); NITRITE,URINE NEGATIVE (NEGATIVE); OCCULT BLOOD,URINE NEGATIVE (NEGATIVE); PROTEIN,URINE TRACE mg/dL (NEGATIVE); UROBILINOGEN,URINE 0.2 (NORMAL) E.U./dL (NORMAL)
[2023-04-03 18:17] LABS: BACTERIA,URINE Few /HPF (None Seen); MUCUS,URINE Moderate Strands; RBC,URINE None Seen /HPF (0-5); SQUAMOUS EPITHELIAL CELL,UR FEW Squamous (<= Few)
[2023-04-03 18:52] LABS: BASOPHILS % (AUTO) 0.2 %; EOSINOPHILS % (AUTO) 0.2 %; HCT - HEMATOCRIT 37.1 % (37.0-47.0); HGB - HEMOGLOBIN 12.1 g/dL (12.0-16.0); LYMPHOCYTES # (AUTO) 0.6 10^3/uL (1.5-3.5); LYMPHOCYTES % (AUTO) 6.1 %; MEAN CORPUSCULAR HEMOGLOBIN 27.7 pg (27.0-31.0); MEAN CORPUSCULAR HGB CONC 32.6 g/dL (32.0-36.0); MEAN CORPUSCULAR VOLUME 84.9 fL (81.0-99.0); MEAN PLATELET VOLUME 11.7 fL (7.9-10.8); MONOCYTES # (AUTO) 0.6 10^3/uL (0.0-1.0); MONOCYTES % (AUTO) 5.8 %; NEUTROPHILS # (AUTO) 8.3 10^3/uL (1.5-6.6); NEUTROPHILS % (AUTO) 86.9 %; PLT - PLATELET COUNT 113 10^3/uL (130-450); RED BLOOD COUNT 4.37 10^6/uL (4.20-5.40); RED CELL DISTRIBUTION WIDTH 16.7 % (12.0-15.0); WHITE BLOOD COUNT 9.5 x10^3/uL (4.8-10.8)
[2023-04-03 18:59] LABS: CREATININE,URINE 203.1 mg/dL; PROTEIN/CREATININE RATIO,URINE 0.2 (<=0.2)
[2023-04-03] MEDS ORDERED: miSOPROStoL 200 MCG TABLET PR PRN (19:17)
[2023-04-03] MEDS ORDERED: AMPICILLIN 2 GM in SODIUM CHLORIDE 0.9% MINIBAG 100 ML IV ONE (19:17)
[2023-04-03] MEDS ORDERED: miSOPROStoL 200 MCG TABLET BC PRN (19:17)
[2023-04-03] MEDS ORDERED: NIFEdipine 10 MG CAPSULE PO PRN (19:17)
[2023-04-03] MEDS ORDERED: OXYTOCIN 10 UNIT/ML VIAL IM PRN (19:17)
[2023-04-03] MEDS ORDERED: METHYLERGONOVINE 0.2 MG/ML VIAL IM PRN (19:17)
[2023-04-03] MEDS ORDERED: CARBOPROST TROMETHAMINE 250 MCG/ML AMP IM PRN (19:17)
[2023-04-03] MEDS ORDERED: TERBUTALINE 1 MG/ML VIAL SUBQ PRN (19:17)
[2023-04-03] MEDS ORDERED: lidocaine 1% 20 ML MDV ID PRN (19:17)
[2023-04-03] MEDS ORDERED: SODIUM CHLORIDE FLUSH 0.9% 10 ML SYRINGE IVP PRN (19:17)
[2023-04-03] MEDS ORDERED: fentaNYL 100 MCG/2 ML VIAL IVP PRN (19:17)
[2023-04-03] MEDS ORDERED: TRANEXAMIC ACID IN NACL 1,000 MG/100 ML BAG IV PRN (19:17)
[2023-04-03] MEDS ORDERED: OXYTOCIN/SODIUM CHLORIDE 500 ML IV PRN (19:17)
[2023-04-03] MEDS ORDERED: hydrALAZINE INJ 20 MG/ML VIAL IVP PRN ×2 (19:17)
[2023-04-03] MEDS ORDERED: LABETALOL 20 MG/4 ML SYRINGE IVP PRN ×3 (19:17)
[2023-04-03 19:46] LABS: ALBUMIN 3.5 g/dL (3.2-5.5); ALBUMIN/GLOBULIN RATIO 1.2 (1.0-2.2); BILIRUBIN,TOTAL 0.3 mg/dL (0.2-1.0); CALCIUM 8.6 mg/dL (8.5-10.3); CREATININE 0.5 mg/dL (0.6-1.3); POTASSIUM 3.4 mmol/L (3.5-4.5); TOTAL PROTEIN 6.4 g/dL (6.4-8.9)
[2023-04-03] MEDS ORDERED: SODIUM CHLORIDE FLUSH 0.9% 10 ML SYRINGE IVP SCH (20:00)
[2023-04-03] MEDS ORDERED: LACTATED RINGERS 1,000 ML IV SCH ×2 (20:00→23:45)
[2023-04-03] MEDS ORDERED: ONDANSETRON ODT 4 MG TABLET TL PRN (20:03)
[2023-04-03] MEDS: ACETAMINOPHEN 325 MG TABLET PO PRN (20:26)
[2023-04-03] MEDS ORDERED: methocarbamoL 500 MG TABLET PO PRN (22:55)
[2023-04-03] MEDS ORDERED: diphenhydrAMINE 25 MG CAPSULE PO PRN (22:59)
--- NOTE | 2023-04-03 23:04 | HISTORY & PHYSICAL EXAMINATION ---
Admit History - : 5 Parity: 4 Care: positive: [facility] Risk/History: positive: Previous (x4), Other (twins) Complications This : positive: Multiple gestation Smoking Status: Never smoker - Mother's Labs GBS: positive: Other (collected today) - Other Maternal History Other Maternal History: seems to have had fever and chills today, slept alot and woke up with contractions. did not eat anything for many hours. Babies moving well. no vomiting. no vaginal bleeding or urinary sx. just very uncomfortable. - HPI Current EDU 04/28/23 Gestation 36 Weeks and 3 Days Vital Signs Temperature 99.5 F 04/03/23 16:32 Heart Rate 109 H 04/03/23 16:32 Respiratory Rate 04/03/23 16:32 Blood Pressure 136/75 H 04/03/23 16:32 Temperature 99.8 F 04/03/23 20:10 Heart Rate 95 04/03/23 20:10 Respiratory Rate 20 04/03/23 20:10 Blood Pressure 136/75 H 04/03/23 16:32 O2 Saturation 96 04/03/23 18:46 If not protocol: Oxygen Flow, liters/minute - NST Procedure NST Procedure Start Time 12:19 Stop Time 13:22 Meds/Allgy - Home Medications Home Medications: Ambulatory Orders Medication Instructions Recorded Confirmed Acetaminophen [Tylenol] 650 mg PO Q6H PRN #30 tab 07/17/22 Ibuprofen [Motrin] 800 mg PO Q8H PRN #30 tablet 07/17/22 methocarbamoL [Robaxin] 500 mg PO Q6H PRN #20 tablet 07/17/22 Acetaminophen/Cod 300/30 [Tylenol 1 - 2 each PO Q4-6H PRN #14 tablet 08/28/22 #3] Amox/Clav 875/125 [Augmentin 1 tablet PO Q12H 5 Days #10 tablet 08/28/22 875/125 Tab] Albuterol Sulf [Ventolin Hfa 1 - 2 puffs INH Q4HR PRN #1 each 10/31/22 Inhaler] Ondansetron Odt [Zofran] 4 mg TL Q6H PRN #10 tablet 10/31/22 Ondansetron Odt [Zofran] 4 mg TL Q6H PRN #20 tablet 10/31/22 - Allergies Allergies/Adverse Reactions: Allergies Allergy/AdvReac Type Severity Reaction Status Date / Time No Known Drug Allergies Allergy Verified 10/31/22 10:40 Review of Systems - Constitutional Constitutional: reports: Fatigue, Chills - Genitourinary Genitourinary: denies: Dysuria - Musculoskeletal Musculoskeletal: reports: Back pain - Neurological Neurological: reports: Headache (mild) Physical - Abdominal Exam Vital Signs: Temp Pulse Resp BP Pulse Ox O2 Flow Rate 99.8 F 95 20 136/75 H 96 04/03/23 20:10 04/03/23 20:10 04/03/23 20:10 04/03/23 16:32 04/03/23 18:46 Contraction Intensity: positive: Mild Uterine Resting Tone: positive: Soft - Monitoring Strip Review: positive: Category I - Vaginal Exam Membranes: positive: Membranes intact Dilation (in cm): 0 Effacement (%): 60 Station: positive: Ballotable Cervical Position: positive: Midposition - Speculum Exam Speculum Exam Performed: positive: No Plan for Labor - Plan For Labor I expect patient to be DC'd or transferred within 96 hours.: Yes Plan for Labor: patient does not seem to be in labor. Was dehydrated by her UA with specific gravity of >1.030 and large ketones. neg covid. Prior c section x 4 so if labor will need c section. Admitted for obs because she was diana so much. After iv fluids and something to eat, they became less frequent and less painful. will take her off monitor to sleep. she is encouraged to let us know if the contractions get more painful. if she does not labor, in the am, she can have breakfast and we will have her get her ultrasound to assess her babies that is scheduled for tomorrow any way. And then she can go home.
[2023-04-04] MEDS ORDERED: AMPICILLIN 1 GM in SODIUM CHLORIDE 0.9% MINIBAG 100 ML IV SCH ×2
[2023-04-04] MEDS: ACETAMINOPHEN 325 MG TABLET PO PRN ×2 (01:57→09:54)
[2023-04-04 04:02] VITALS: BP 131/73; O2SAT 97
[2023-04-04 06:14] LABS: BASOPHILS % (AUTO) 0.3 %; EOSINOPHILS % (AUTO) 0.1 %; HCT - HEMATOCRIT 36.8 % (37.0-47.0); HGB - HEMOGLOBIN 11.8 g/dL (12.0-16.0); LYMPHOCYTES # (AUTO) 1.1 10^3/uL (1.5-3.5); LYMPHOCYTES % (AUTO) 15.9 %; MEAN CORPUSCULAR HEMOGLOBIN 27.3 pg (27.0-31.0); MEAN CORPUSCULAR HGB CONC 32.1 g/dL (32.0-36.0); MEAN PLATELET VOLUME 11.3 fL (7.9-10.8); MONOCYTES # (AUTO) 0.5 10^3/uL (0.0-1.0); MONOCYTES % (AUTO) 7.9 %; NEUTROPHILS % (AUTO) 74.9 %; PLT - PLATELET COUNT 107 10^3/uL (130-450); RED BLOOD COUNT 4.33 10^6/uL (4.20-5.40); RED CELL DISTRIBUTION WIDTH 16.6 % (12.0-15.0); WHITE BLOOD COUNT 6.7 x10^3/uL (4.8-10.8)
[2023-04-04] MEDS: CALCIUM CARBONATE CHEW 500 MG TABLET PO SCH (09:55)
[2023-04-04 10:01] LABS: CORONAVIRUS 229E-RESP PCR NOT DETECTED; CORONAVIRUS HKU1-RESP PCR NOT DETECTED; CORONAVIRUS NL63-RESP PCR NOT DETECTED; CORONAVIRUS OC43-RESP PCR NOT DETECTED; HUMAN METAPNEUMOVIRUS NOT DETECTED; SARS-CoV-2 -RESP PCR PANEL NOT DETECTED
[2023-04-04 10:02] LABS: B. PARAPERTUSSIS- RESP PCR PAN NOT DETECTED; B. PERTUSSIS- RESP PCR PANEL NOT DETECTED; C. PNEUMONIAE- RESP PCR PANEL NOT DETECTED; INFLUENZA A H1 2009- RESP PCR DETECTED; INFLUENZA B - RESP PCR PANEL NOT DETECTED; M. PNEUMONIAE- RESP PCR PANEL NOT DETECTED; PARAINFLUENZA VIRUS 1 NOT DETECTED; PARAINFLUENZA VIRUS 2 NOT DETECTED; PARAINFLUENZA VIRUS 3 NOT DETECTED; PARAINFLUENZA VIRUS 4 NOT DETECTED; RHINOVIRUS/ENTEROVIRUS NOT DETECTED; RSV- RESP PCR PANEL NOT DETECTED
[2023-04-04] MEDS ORDERED: OSELTAMIVIR 75 MG CAPSULE PO SCH (11:00)
--- NOTE | 2023-04-10 10:58 | DISCHARGE SUMMARY ---
Discharge Summary Admit Date: 04/03/23 Discharge Date: 04/04/23 Discharging Provider: Kobe Code Status: Attempt Resuscitation Condition at Discharge: Good - DIAGNOSES Admission Diagnoses: TWin , dehydration. Discharge Diagnoses with Status of Each Condition: twin with nausea. Nausea improved Influenza A, tamiflu started. - HPI History of Present Illness: Patient presented with nausea, a bit dehydrated, some contactions. - HOSPITAL COURSE Hospital Course: Given IV hydration. babies monitored and they were reassuring. Influenza A diagnosed in the morning. Tamiflu started. - ALLERGIES Allergies/Adverse Reactions: Allergies Allergy/AdvReac Type Severity Reaction Status Date / Time No Known Drug Allergies Allergy Verified 10/31/22 10:40 - MEDICATIONS Home Medications: Ambulatory Orders Medication Instructions Recorded Confirmed Acetaminophen [Tylenol] 650 mg PO Q6H PRN #30 tab 07/17/22 Ibuprofen [Motrin] 800 mg PO Q8H PRN #30 tablet 07/17/22 methocarbamoL [Robaxin] 500 mg PO Q6H PRN #20 tablet 07/17/22 Acetaminophen/Cod 300/30 [Tylenol 1 - 2 each PO Q4-6H PRN #14 tablet 08/28/22 #3] Amox/Clav 875/125 [Augmentin 1 tablet PO Q12H 5 Days #10 tablet 08/28/22 875/125 Tab] Albuterol Sulf [Ventolin Hfa 1 - 2 puffs INH Q4HR PRN #1 each 10/31/22 Inhaler] Ondansetron Odt [Zofran] 4 mg TL Q6H PRN #10 tablet 10/31/22 Ondansetron Odt [Zofran] 4 mg TL Q6H PRN #20 tablet 10/31/22 Oseltamivir [Tamiflu] 75 mg PO BID 5 Days #9 cap 04/04/23 - PHYSICAL EXAM AT DISCHARGE General Appearance: positive: No acute distress, Alert Respiratory: positive: No respiratory distress Cardiovascular: positive: Regular rate & rhythm Abdomen: positive: Non-tender - LABS Result Diagrams: 04/04/23 06:05 04/03/23 19:25 - FOLLOW UP Follow Up: as scheduled. - TIME SPENT Time Spent in Discharge (Minutes): 45
== END 2023-04-04 11:08 | disposition home or self-care (01) ==
LOC: WFO 16:10 → FBP 16:11 → WFO 20:13
PROVIDERS: ADMIT Obstetrics & Gynecology; ATTEND Obstetrics & Gynecology
DX: O99.513 Diseases of the respiratory system complicating pregnancy, third trimester (principal); J10.1 Influenza due to other identified influenza virus with other respiratory manifestations; O99.213 Obesity complicating pregnancy, third trimester; E86.0 Dehydration; O30.043 Twin pregnancy, dichorionic/diamniotic, third trimester; Z3A.36 36 weeks gestation of pregnancy; O34.219 Maternal care for unspecified type scar from previous cesarean delivery; O47.03 False labor before 37 completed weeks of gestation, third trimester
CPT/HCPCS: 36415; 80053; 81001; 82570; 84156; 85025; 86850; 86900; 86901; 87086; 87633; 87635; 87797; 96360; 96361; 99215

== ENCOUNTER 2023-04-09 11:04 | Outpatient (CLI) | payer MEDICAID ==
[2023-04-09 11:55] VITALS: BP 138/83
--- NOTE | 2023-04-09 17:00 | PROCEDURE REPORT ---
- HPI Diagnosis/Indication for NST: Multiple gestation Current EDU 04/28/23 Gestation 37 Weeks and 2 Days 8 Para 4 Vital Signs Temperature 98.4 F 04/09/23 11:41 Heart Rate 94 04/09/23 11:41 Respiratory Rate 18 04/09/23 11:41 Blood Pressure 138/83 H 04/09/23 11:41 Temperature 98.4 F 04/09/23 11:41 Heart Rate 94 04/09/23 11:41 Respiratory Rate 18 04/09/23 11:41 Blood Pressure 138/83 H 04/09/23 11:41 O2 Saturation If not protocol: Oxygen Flow, liters/minute - NST Procedure NST Procedure Start Date 04/09/23 Start Time 11:15 Stop Time 12:12 Vibroacoustic Stimulation Used No Patient States Movement Yes - Results and Plan Plan: Patient is a 32-year-old G8, P4 at 37 weeks 2 days gestation here for NST. NST Performed 04/09/2023 NST Read 04/09/2023 FHT: Twin A: 130 bpm baseline, moderate variability, accelerations present, no decelerations. Reactive NST Twin B: 125 bpm baseline, moderate variability, accelerations present, no decelerations. Reactive NST [place]: Quiescent Diagnosis 37 weeks gestation Dichorionic, diamniotic twins Continue with scheduled NST.
== END 2023-04-09 12:10 | disposition home or self-care (01) ==
LOC: WFO 11:04 → FBP 11:04 → WFO 12:10
PROVIDERS: ATTEND Obstetrics & Gynecology
DX: O30.043 Twin pregnancy, dichorionic/diamniotic, third trimester (principal); Z3A.37 37 weeks gestation of pregnancy
CPT/HCPCS: 59025

== ENCOUNTER 2023-04-09 14:08 | Outpatient (CLI) | payer MEDICAID ==
--- NOTE | 2023-04-09 16:54 | Ultrasound Report ---
PROCEDURE: OB 14+ Weeks INDICATIONS: DICHORIONIC DIAMNIOTIC TWIN OUTSIDE/PRIOR DATING DATA: Last menstrual period (LMP): 07/31/2022. LMP-based estimated date of delivery ([place]): 04/07/2023. First dating scan (date and location): 09/07/2022. Estimated date of delivery ([place]) from first dating scan: 04/28/2023. The below data below was generated using the ultrasound [place] of 04/28/2023 TECHNIQUE: Real-time scanning was performed of the fetuses, with image documentation and biometric measurements. Endovaginal scanning: Not performed COMPARISON: None. FINDINGS: General: An intrauterine dichorionic-diamniotic twin is present, as evidenced by separate placentas, differing sexes, or an intervening membrane of greater than 2 mm. Amniotic fluid index (composite): 10.2 cm. Maternal cervical canal: Not well visualized more. FETUS A: Largest amniotic fluid pocket: 8.4 cm; normal range is 2-8 cm. Placental position is anterior, without previa. heart rate: 136 beats per minute. biometrics: Biparietal diameter: 8.8 cm, 35 weeks 4 days, 22 percentile Head circumference: 31.9 cm, 35 weeks 6 days, 50th percentile Abdominal circumference: 31.1 cm, 35 weeks 0 days, 5th percentile Femur length: 7.0 cm, 35 weeks 5 days, 15 percentile Estimated gestational age from initial scan: 37 weeks 2 days Composite gestational age from present scan: 35 weeks 4 days Estimated weight and percentile: 2666 g, 14th percentile Measurement variability in biometric dating: +/- 10 days from 12-20 weeks gestation, +/- 2 weeks from 20-30 weeks gestation, +/- 3 weeks at 30 weeks gestation or later. FETUS B: Largest amniotic fluid pocket: 10.2 cm; normal range is 2-8 cm. Placental position is posterior, without previa. heart rate: 144 beats per minute. biometrics: Biparietal diameter: 8.7 cm, 35 weeks 1 day, 14th percentile Head circumference: 33.2 cm, 37 weeks 6 days, 48th percentile Abdominal circumference: 33.3 cm, 37 weeks 2 days, 63rd percentile Femur length: 6.2 cm, 35 weeks 0 days, 6th percentile Estimated gestational age from initial scan: 37 weeks 2 days Composite gestational age from present scan: 36 weeks 2 days Estimated weight and percentile: 2962G, 37th percentile Measurement variability in biometric dating: +/- 10 days from 12-20 weeks gestation, +/- 2 weeks from 20-30 weeks gestation, +/- 3 weeks at 30 weeks gestation or later. IMPRESSION: Intrauterine, dichorionic diamniotic . Fetus a: EFW of 2666 g, 14%, LEA of 8.4 cm. Fetus B: EFW of 2962 g, 37th percentile, LEA of 10.2 cm. Reviewed by: Marshall Flores MD on 04/09/2023 4:53 PM PST Approved by: Marshall Flores MD on 04/09/2023 4:53 PM PST Station ID: [id number]
== END 2023-04-09 14:09 | disposition home or self-care (01) ==
LOC: DI 14:08
PROVIDERS: ATTEND Obstetrics & Gynecology
DX: O30.043 Twin pregnancy, dichorionic/diamniotic, third trimester (principal); Z3A.35 35 weeks gestation of pregnancy

== ENCOUNTER 2023-04-17 07:21 | Inpatient (IN) | payer MEDICAID ==
[~2023-04-17 07:21] MED LIST: CARBOPROST TROMETHAMINE 250 MCG/ML AMP IM ONE; METHYLERGONOVINE 0.2 MG/ML VIAL ONE; PHENYLEPHRINE HCL 0.5 MG/5 ML AMPULE ONE; SODIUM CHLORIDE 0.9% 10 ML VIAL IVP ONE; ePHEDrine 50 MG/ML VIAL IVP ONE; fentaNYL 100 MCG/2 ML VIAL ONE; miSOPROStoL 200 MCG TABLET ONE
[2023-04-17] MEDS ORDERED: MORPHINE PF 5 MG/10 ML VIAL ONE (07:22)
[2023-04-17] MEDS ORDERED: CITRIC ACID/SODIUM CITRATE 15 ML UDC PO ONE (07:42)
[2023-04-17] MEDS: CELECOXIB 100 MG CAPSULE PO ONE (07:55)
[2023-04-17] MEDS: CITRIC ACID/SODIUM CITRATE 15 ML UDC PO ONE (07:56)
[2023-04-17] MEDS: ACETAMINOPHEN 500 MG TABLET PO ONE (07:57)
[2023-04-17] MEDS: GABAPENTIN 400 MG CAPSULE PO ONE (07:59)
[2023-04-17 08:13] LABS: BASOPHILS % (AUTO) 0.3 %; EOSINOPHILS # (AUTO) 0.1 10^3/uL (0.0-0.7); EOSINOPHILS % (AUTO) 0.4 %; HGB - HEMOGLOBIN 13.3 g/dL (12.0-16.0); LYMPHOCYTES # (AUTO) 2.7 10^3/uL (1.5-3.5); LYMPHOCYTES % (AUTO) 23.1 %; MEAN CORPUSCULAR HEMOGLOBIN 27.3 pg (27.0-31.0); MEAN CORPUSCULAR HGB CONC 32.4 g/dL (32.0-36.0); MEAN CORPUSCULAR VOLUME 84.2 fL (81.0-99.0); MEAN PLATELET VOLUME 12.1 fL (7.9-10.8); MONOCYTES # (AUTO) 0.8 10^3/uL (0.0-1.0); MONOCYTES % (AUTO) 6.4 %; NEUTROPHILS # (AUTO) 8.1 10^3/uL (1.5-6.6); NEUTROPHILS % (AUTO) 68.9 %; PLT - PLATELET COUNT 206 10^3/uL (130-450); RED BLOOD COUNT 4.87 10^6/uL (4.20-5.40); RED CELL DISTRIBUTION WIDTH 16.2 % (12.0-15.0); WHITE BLOOD COUNT 11.8 x10^3/uL (4.8-10.8)
[2023-04-17 08:14] LABS: ALBUMIN 3.5 g/dL (3.2-5.5); ALBUMIN/GLOBULIN RATIO 1.1 (1.0-2.2); BILIRUBIN,TOTAL 0.4 mg/dL (0.2-1.0); CREATININE 0.5 mg/dL (0.6-1.3); POTASSIUM 4.8 mmol/L (3.5-4.5); TOTAL PROTEIN 6.7 g/dL (6.4-8.9)
[2023-04-17 08:19] LABS: BILIRUBIN,URINE NEGATIVE (NEGATIVE); GLUCOSE, URINE (UA) NEGATIVE (NEGATIVE); KETONES,URINE (UA) NEGATIVE (NEGATIVE); LEUKOCYTE ESTERASE, URINE SMALL (NEGATIVE); NITRITE,URINE NEGATIVE (NEGATIVE); OCCULT BLOOD,URINE NEGATIVE (NEGATIVE); PROTEIN,URINE NEGATIVE (NEGATIVE); UROBILINOGEN,URINE 0.2 (NORMAL) E.U./dL (NORMAL)
--- NOTE | 2023-04-17 08:21 | HISTORY & PHYSICAL EXAMINATION ---
Admit History - Visit Reason Visit Reason: Other (scheduled RCS x5) - Smoking Status: Never smoker - Other Maternal History Other Maternal History: Please see scanned H&P In sum: @ 38+w with di/di twin here for scheduled RCS RBA discussed informed consent obtained proceed to OR for scheduled C/S. FWB reassuring x2 LMP: 08/02/2022 unreliable [place] by LMP: 04/07/2023 [place]: 09/07/, 6+5 (larger twin) CW LMP Final [place]: 04/28/2023 START [place] TWINS [X] boy / girl - di / di. (cfDNA) [X] Mike MFM - s/p nuchal [X] Nov -- for cervical length and ultrasound - STILL NEED MFM RECORDS [X] FAS II [X] preg FMLA 02/01 due to high risk - forms filled out 01/10 JL [X] needs NSTs from 36w on -starts sunday @ 12 [X] growth 03/09 24%ile & 33%ile - repeat ordered end of Mar -- not yet scheduled, will ask Sunday when she goes for NST FOUR C/S - 1st 2'2 massive abruption with AROM - others scheduled - plan is repeat C/S - likely 04/17 @ 38+ weeks - wants BTL TIED NOT REMOVED -- plan: delay cord clamping, with her continuously COVID [ ] NST at term, consider early delivery - except di/di twins she prefers 38w over 37. ANXIETY / DEPRESSION - for entire life, complex history of meds / etc - for the last 7 years has used natural coping mechanisms. - increased very real anxiety: twins, has 15, 11, 8 (6yo), 3yo - EPDS 19 20 - on welbutrin, starting fluoxetine 10mg QD after reviewing options. - warm line # given - reviewed coping mechanisms - referal to MH given. Pre-Preg Weight: 259 BMI: 44.62 Blood type: B+ Ab Screen: neg CBC: PLT 215 HCT 39.0 HGB 12.8 RUB: imm VZV: / immune 08/24 equivocal HBsAg: neg HepC: N-R RPR/AB-EIA: N-R HIV: N-R Flu: none Covid: 1 Moderna set, no boosters PAP: 05/21/20 wnl GC/CT: Neg HSV: yes, self, partner-no Genetic testing: through [facility] ? FAS: @[facility] Placenta: TWIN A: Anterior TWIN B: Posterior Cord: TWIN A&B: Both 3 vessel cord EFW: TWIN A: TWIN B: 50gm OGCT: 114 TDAP: given 02/07 Breast Pump: given 02/07 3rd trimester H/H PLT 3rd trimester HIV GBS:POSITIVE RSV: 03/07 Delivery plan: repeat c/s Contraception: IUD -- CHANGE IN PLAN - HPI Diagnosis/Indication for NST: Other (twins at term pre-Op for RCS x5) Current EDU 04/28/23 Gestation 38 Weeks and 3 Days 8 Para 4 Vital Signs Temperature 97.9 F 04/17/23 07:27 Heart Rate 78 04/17/23 07:27 Respiratory Rate 19 04/17/23 07:27 Blood Pressure 130/78 04/17/23 07:27 Temperature 97.9 F 04/17/23 07:27 Heart Rate 78 04/17/23 07:27 Respiratory Rate 19 04/17/23 07:27 Blood Pressure 130/78 04/17/23 07:27 O2 Saturation If not protocol: Oxygen Flow, liters/minute - NST Procedure NST Procedure Start Date 04/17/23 Start Time 07:35 Stop Time 08:02 Vibroacoustic Stimulation Used No Patient States Movement Yes - Results and Plan Findings/Impression: Baby A: 135 mod connor + A cells + 1 connor D cell for <2 mins with SRTB - reassuring Baby B: 145 mod connor + A cells no D cells reactive. Meds/Allgy - Home Medications Home Medications: Ambulatory Orders Medication Instructions Recorded Confirmed Acetaminophen [Tylenol] 650 mg PO Q6H PRN #30 tab 07/17/22 Ibuprofen [Motrin] 800 mg PO Q8H PRN #30 tablet 07/17/22 methocarbamoL [Robaxin] 500 mg PO Q6H PRN #20 tablet 07/17/22 Acetaminophen/Cod 300/30 [Tylenol 1 - 2 each PO Q4-6H PRN #14 tablet 08/28/22 #3] Amox/Clav 875/125 [Augmentin 1 tablet PO Q12H 5 Days #10 tablet 08/28/22 875/125 Tab] Albuterol Sulf [Ventolin Hfa 1 - 2 puffs INH Q4HR PRN #1 each 10/31/22 Inhaler] Ondansetron Odt [Zofran] 4 mg TL Q6H PRN #10 tablet 10/31/22 Ondansetron Odt [Zofran] 4 mg TL Q6H PRN #20 tablet 10/31/22 Oseltamivir [Tamiflu] 75 mg PO BID 5 Days #9 cap 04/04/23 - Allergies Allergies/Adverse Reactions: Allergies Allergy/AdvReac Type Severity Reaction Status Date / Time No Known Drug Allergies Allergy Verified 10/31/22 10:40 Physical - Abdominal Exam Vital Signs: Temp Pulse Resp BP Pulse Ox O2 Flow Rate 97.9 F 78 19 130/78 04/17/23 07:27 04/17/23 07:27 04/17/23 07:27 04/17/23 07:27 - Monitoring Strip Review: positive: Category I - Presentation Presentation: positive: Vertex, Transverse - Vaginal Exam Membranes: positive: Membranes intact - Speculum Exam Speculum Exam Performed: positive: No Plan for Labor - Plan For Labor I expect patient to be DC'd or transferred within 96 hours.: Yes Plan for Labor: 32yo @ 38&3 with di/ di twins (vtx / transverse back up) here for scheduled RCS RBA discussed, proceed to OR when available. - 2u blood available NO LONGER WANTS BTL - SO WILL NOT BE DONE. anxiety / depression - on zoloft - connected with [facility] - care post- - mood is good today
[2023-04-17] MEDS ORDERED: ROPIVACAINE 0.5% PF 20 ML VIAL ONE (08:22)
[2023-04-17 08:25] LABS: BACTERIA,URINE Rare /HPF (None Seen); CLARITY,URINE HAZY (CLEAR); RBC,URINE 0-5 /HPF (0-5); SQUAMOUS EPITHELIAL CELL,UR NONE SEEN (<= Few)
[2023-04-17] MEDS ORDERED: NALOXONE 0.4 MG/ML VIAL IVP PRN ×2 (08:26→10:27)
[2023-04-17] MEDS ORDERED: ePHEDrine 50 MG/ML VIAL IVP PRN (08:26)
[2023-04-17] MEDS ORDERED: ATROPINE ABBOJECT 1 MG/10 ML SYRINGE IVP PRN (08:26)
[2023-04-17] MEDS ORDERED: fentaNYL 100 MCG/2 ML VIAL IVP PRN (08:26)
[2023-04-17] MEDS ORDERED: HYDROmorphone 0.5 MG/0.5 ML SYRINGE IVP PRN (08:26)
[2023-04-17] MEDS ORDERED: METOCLOPRAMIDE 10 MG/2 ML VIAL IVP PRN (08:26)
[2023-04-17] MEDS ORDERED: MORPHINE 2 MG/ML CARPUJECT IVP PRN (08:26)
[2023-04-17] MEDS ORDERED: ONDANSETRON 4 MG/2 ML VIAL IVP PRN ×2 (08:26→10:27)
--- NOTE | 2023-04-17 08:26 | ANESTHESIA ---
Pre-Anesthesia VS, & Labs - Diagnosis repeat C/S twins - Procedure C/S twins Vital Signs: Temp Pulse Resp BP Pulse Ox O2 Flow Rate 36.6 C 78 19 130/78 04/17/23 07:27 04/17/23 07:27 04/17/23 07:27 04/17/23 07:27 Height: 5 ft 4 in Weight (kg): 120.429 kg Body Mass Index: 45.6 BMI Classification: Morbidly Obese - NPO >8 hours - Is Patient ?: Yes - Lab Results Current Lab Results: Laboratory Tests 04/17/23 07:48: WBC 11.8 H, RBC 4.87, Hgb 13.3, Hct 41.0, MCV 84.2, MCH 27.3, MCHC 32.4, RDW 16.2 H, Plt Count 206, MPV 12.1 H, Neut # (Auto) 8.1 H, Lymph # (Auto) 2.7, [place] # (Auto) 0.8, Eos # (Auto) 0.1, Baso # (Auto) 0.0, Absolute Nucleated RBC 0.00, Nucleated RBC % 0.0 04/17/23 07:46: POC Whole Bld Glucose 76 04/17/23 07:28: Sodium 133 L, Potassium 4.8 H, Chloride 106, Carbon Dioxide 20 L , Anion Gap 7.0, BUN 9, Creatinine 0.5 L, Estimated GFR (MDRD) 144, Glucose 76, Calcium 9.0, Total Bilirubin 0.4, AST 47 H, ALT 48, Alkaline Phosphatase 187 H, Total Protein 6.7, Albumin 3.5, Globulin 3.2, Albumin/Globulin Ratio 1.1 Fish Bones: 04/17/23 07:48 04/17/23 07:28 Home Medications and Allergies Active Medications Lactated Ringer's (Lr) 1,000 mls @ 125 mls/hr IV .Q8H [facility] Allergies/Adverse Reactions: Allergies Allergy/AdvReac Type Severity Reaction Status Date / Time No Known Drug Allergies Allergy Verified 10/31/22 10:40 Anes History & Medical History - Anesthetic History Anesthesia Complications: reports: No previous complications Family history of Anesthesia Complications: Denies Family history of Malignant Hyperthermia: Denies - Medical History Cardiovascular: reports: None Pulmonary: reports: None Gastrointestinal: reports: None Urinary: reports: None Neuro: reports: None Musculoskeletal: reports: None Endocrine/Autoimmune: reports: None Blood Disorders: reports: None Skin: reports: None Smoking Status: Never smoker Exam General: Alert, Oriented x3, Cooperative Dental: WNL Mouth Openin Fingerbreadth Neck Mobility: Normal Mallampati classification: II Thyromental Distance: 4-6 cm Respiratory: Lungs clear Cardiovascular: Regular rate Plan Anesthesia Type: Spinal, Transverse Abdominis Plane (TAP) Block Regional Block: Per Surgeon's request for Post Op pain control Consent for Procedure(s) Verified and Reviewed: Yes Code Status: Attempt Resuscitation ASA classification: 2-Mild systemic disease Is this case an emergency?: No
[2023-04-17] MEDS ORDERED: OXYTOCIN/SODIUM CHLORIDE 500 ML IV ONE (08:31)
[2023-04-17] MEDS ORDERED: DEXAMETHASONE 4 MG/ML VIAL ONE (09:20)
[2023-04-17] MEDS: LACTATED RINGERS 1,000 ML IV ONE ×2 (10:00→10:41)
[2023-04-17] MEDS ORDERED: hydrALAZINE INJ 20 MG/ML VIAL IVP PRN ×2 (10:27)
[2023-04-17] MEDS ORDERED: OXYTOCIN/SODIUM CHLORIDE 500 ML IV PRN (10:27)
[2023-04-17] MEDS ORDERED: LABETALOL 20 MG/4 ML SYRINGE IVP PRN ×3 (10:27)
[2023-04-17] MEDS ORDERED: SIMETHICONE CHEW 80 MG TABLET PO PRN (10:27)
[2023-04-17] MEDS ORDERED: NIFEdipine 10 MG CAPSULE PO PRN (10:27)
--- NOTE | 2023-04-17 10:40 | OPERATIVE REPORT ---
Operative Report - General Admit Date: 04/17/23 Procedure Date: 04/17/23 - Other Other Information/Narrative: OPERATIVE NOTE Pre-operative diagnosis: 1. IUP @ 38&3 2. h/o prior CS x4 3. Twins di di vtx / trx Procedure: RLTCS via pfannensteil skin incision Post-operative diagnosis: FREDDY Surgeon: [place] Manager Database: Solitario HAJI, Zaynab Rolle [employer] SAFETY MANAGER - expertise and skill in retraction required for successful completion of the case. Anesthesia: Spinal Findings: viable female infant, vertexpresentation, Apgars 8/9, born at 0928 with mec, viable male delivered vertex presentation, apgars 8/9, clear fluid normal uterus normal tubes & ovaries bilaterally no notable adhesions Complications: None apparent EBL: 700cc UOP: 25cc IVF: 900cc Procedure in detail: After risks benefits and alternatives, as well as indication for procedure and anticipated post-operative recovery course, were discussed with the patient informed consent was obtained and patient was taken to the operating theater where spinal anesthesia was administered without difficulty. Ramirez catheter was inserted in normal sterile fashion. Pt was prepared and draped in normal sterile fashion. Anesthesia was tested and found to be adequate. Prior to skin incision pt received recommended antibiotics, surgical time out was performed, and all persons in the operating theater participated in time out and agreed. Pfannensteil skin incision made with scalpel. Carried down to level of fasia. Fascia incised and extended. Anterior aspect of rectus sheath dissected off of rectus muscle without difficulty. Peritoneum entered without difficulty and surgical field extended with gentle lateral traction. Lower uterine segment identified, well developed. Uterine incision made with scalpel, uterus entered bluntly and incision extended bluntly. Surgeons right hand entered into lower uterine segment, presenting part elevated to level of incision and infant delivered atraumatically. Delayed cord clamping, baby dried, and surgeons hand entered uterus again, bringing head of baby B to incision, fundal pressure again and baby B delivered vertex atraumatically without difficulty. Delayed cord clamping for baby B as well. Cord clamped and cut x2, babies handed to awaiting pediatricians (we have 2), apgars as noted above. Placenta delivered manually. Uterus exteriorized and wrapped in moist lap. Uterine cavity cleaned with moist lap and found to be free of membranes or debris. Uterine incision closed with 0 vicryl, running suture, and subsequently imbricated with the same suture. Incision inspected, two additional figure of 8 sutures placed with 2.0 vicryl for hemostasis. hemostatic. Gutters cleaned. Uterus returned to abdominal cavity. All inspected, hemostatic. Peritoneum reapproximated without suture. Muscles inspected, fascia inspected, hemostatic. Fascia closed with 0 looped PDS in running fashion. Subcutaneous tissue irrigated, and then closed with 2.0 vicryl in running fashion. Skin incision closed with subcuticular sutures with 4.0 vicryl. Pt and infants tolerated procedure well. All counts correct. Pt to PACU in stable condition.
--- NOTE | 2023-04-17 11:26 | ANESTHESIA POST OP EVALUATION ---
Anesthesia Post Eval - Post Anesthesia Eval Vitals: Last Vital Signs Temp 36.1 C L 04/17/23 10:42 Pulse 62 04/17/23 11:10 Resp 18 04/17/23 11:10 BP 122/71 04/17/23 11:10 Pulse Ox 100 04/17/23 11:10 O2 Flow Rate CV Function Including HR & BP: Stable Pain Control: Satisfactory Nausea & Vomiting: Negative Mental Status: Baseline Respiratory Status: Airway Patent Hydration Status: Satisfactory Anesthesia Complications: None
[2023-04-17] MEDS: ACETAMINOPHEN 500 MG TABLET PO SCH (13:56)
[2023-04-17] MEDS: KETOROLAC 30 MG/ML VIAL IVP SCH (13:58)
--- NOTE | 2023-04-17 15:16 | PHARMACY PROGRESS NOTE ---
- Best Possible Medication History Admit Date and Time: 04/17/23 0721 Processed by: Pharmacy Medication History completed: Yes Patient Interview: Completed Secondary Source(s): Prescription bottles, Insurance records As the person ultimately responsible for medication therapy, providers are able to order a medication from an existing home medication list in [facility] via the "Reconcile Routine" prior to Confirmation of that medication by lab support service tech. Such practice is discouraged except when the physician, in their clinical judgment, deems that a medical need exists for a medication without regard to previous use.
[2023-04-17] MEDS: oxyCODONE 5 MG TABLET PO PRN (18:24)
[2023-04-17] MEDS: DOCUSATE SODIUM 100 MG CAPSULE PO SCH (22:02)
[2023-04-18 05:54] LABS: HCT - HEMATOCRIT 35.1 % (37.0-47.0); MEAN CORPUSCULAR HEMOGLOBIN 28.3 pg (27.0-31.0); MEAN CORPUSCULAR HGB CONC 31.3 g/dL (32.0-36.0); MEAN CORPUSCULAR VOLUME 90.2 fL (81.0-99.0); MEAN PLATELET VOLUME 11.7 fL (7.9-10.8); RED BLOOD COUNT 3.89 10^6/uL (4.20-5.40); RED CELL DISTRIBUTION WIDTH 16.1 % (12.0-15.0); WHITE BLOOD COUNT 23.2 x10^3/uL (4.8-10.8)
[2023-04-18] MEDS: IBUPROFEN 600 MG TABLET PO SCH (08:53)
[2023-04-18] MEDS: LACTATED RINGERS 1,000 ML IV SCH ×3 (08:58→09:01)
[2023-04-18] MEDS: ceFAZolin (2G) 2 GM in SODIUM CHLORIDE 0.9% MINIBAG 100 ML IV ONE (08:58)
--- NOTE | 2023-04-18 18:37 | PROVIDER PROGRESS NOTE ---
Subjective - Prog Note Date Prog Note Date: 04/18/23 Prog Note Time: 18:34 - Subjective Pt reports feeling: Improved Subjective: doing quite well. working on getting babies to tandem feed. I saw her in am and after office. did not take her wellbutrin or fluoxetine today but feels ok without it. will order for tomorrow am. Objective - Vital Signs/Intake & Output Reviewed Vital Signs: Yes Vital Signs: Vital Signs x48h Temp Pulse Resp BP Pulse Ox 04/18/23 17:17 97.9 F 85 14 114/61 98 04/18/23 13:16 97.9 F 90 16 134/68 H 100 Intake & Output: Intake & Output 04/15/23 04/16/23 04/17/23 04/18/23 23:59 23:59 23:59 23:59 Intake Total 1300 400 Output Total 2250 1300 Balance -950 -900 - Objective General Appearance: positive: No acute distress Respiratory: positive: No respiratory distress Abdomen: positive: Other (expected discomfort.) - Lab Results Fish Bones: 04/18/23 05:50 04/17/23 07:28 Other Labs: Lab Results x24hrs 04/18/23 Range/Units 05:50 WBC 23.2 H (4.8-10.8) x10^3/uL RBC 3.89 L (4.20-5.40) 10^6/uL Hgb 11.0 L (12.0-16.0) g/dL Hct 35.1 L (37.0-47.0) % MCV 90.2 (81.0-99.0) fL MCH 28.3 (27.0-31.0) pg MCHC 31.3 L (32.0-36.0) g/dL RDW 16.1 H (12.0-15.0) % Plt Count 175 (130-450) 10^3/uL MPV 11.7 H (7.9-10.8) fL Assessment/Plan - Problem List (1) Twin delivery by Impression: doing great post op. will restart preop meds tomorrow am. walk. continue work on . probable discharge tomorrow. lovenox not ordered. will order to give her a dose tonight. given her bmi of 45.
[2023-04-18] MEDS: ENOXAPARIN 40 MG/0.4 ML SYRINGE SUBQ SCH (21:19)
[2023-04-19] MEDS: FERROUS SULFATE 325 MG TABLET PO SCH (08:22)
[2023-04-19] MEDS: buPROPion XL 150 MG TABLET PO SCH (08:22)
[2023-04-19] MEDS: FLUoxetine 10 MG CAPSULE PO SCH (08:23)
[2023-04-19] MEDS ORDERED: buPROPion XL 150 MG TABLET PO SCH (09:00)
[2023-04-19] MEDS ORDERED: FLUoxetine 10 MG CAPSULE PO SCH (09:00)
[2023-04-19] MEDS ORDERED: VARICELLA VACCINE LIVE/PF 1,350 UNIT/0.5 ML VIAL SUBQ ONE (09:00)
--- NOTE | 2023-04-19 09:23 | PROVIDER PROGRESS NOTE ---
Subjective - Subjective Subjective: Subjective Patient reports she is doing well. Lochia appropriate. Denies heavy bleeding. Ambulating. Pelvic and abdominal pain well-controlled. Tolerating oral intake. Diet: Regular. Voiding without difficulty. Passing flatus. Denies BM. Patient is bonding with baby's in room Breast feeding going well, but baby boy has been losing weight Denies feeling lightheaded, dizzy or excessively fatigued. Control: Undecided, possible salpingectomy later. Objective General: Alert, oriented, no apparent distress. Cardiovascular: Regular rate. Regular rhythm. Lungs: No increased work of breathing. Abdomen: Uterus firm. Below umbilicus. No guarding or rebound. Extremities: No pain on palpation. No cords palpated. Distal pulses intact. Incision: Clean, dry, and intact. Assessment and Plan day 2. -Routine care -Anticipate discharge tomorrow DVT prophylaxis -SCDs and enoxaparin. Objective - Vital Signs/Intake & Output Vital Signs: Vital Signs x48h Temp Pulse Resp BP Pulse Ox 04/19/23 03:45 98.1 F 71 16 119/60 97 Intake & Output: Intake & Output 04/16/23 04/17/23 04/18/23 04/19/23 23:59 23:59 23:59 23:59 Intake Total 1300 400 Output Total 2250 1300 Balance -950 -900 - Lab Results Fish Bones: 04/18/23 05:50 04/17/23 07:28
[2023-04-20 14:03] VITALS: BP 130/71; O2SAT 99
--- NOTE | 2023-04-20 14:20 | Labor Flowsheet ---
Labor Flowsheet Datetime Report Generated by CPN: 04/20/2023 14:19 Datetime: 04/20/2023 13:41 VITAL SIGNS NBP Sys/Deepthi/Mean (mmHg): 130 : 71 : 84 Pulse: 96 COMMUNICATION LaborFlag: Labor Datetime: 04/19/2023 20:40 SpO2 (%): 96 Datetime: 04/17/2023 07:36 Stage of : Labor
--- NOTE | 2023-04-20 19:50 | Discharge Plan ---
Discharge Plan Problem Reviewed?: Yes Disposition: Home, Self Care Prescriptions: Acetaminophen 650 mg PO Q4HR PRN #30 ea PRN Reason: Pain 1-4 oxyCODONE [Roxicodone] 5 mg PO Q4HR PRN #10 tab PRN Reason: Moderate Pain (Level 4-6) Docusate Sodium 100Mg Capsule [Colace 100Mg Capsule] 100 - 200 mg PO BID PRN #60 cap PRN Reason: Constipation Ibuprofen [Motrin] 600 mg PO Q6H PRN #30 tab PRN Reason: Pain Vit No.180/Iron/Folic [ Plus Tablet] 1 each PO DAILY #100 tablet Cholecalciferol (Vitamin D3) [Vitamin D3] 5,000 unit PO DAILY #365 tab Diet: Regular Activity Restrictions: Additional Comments (pelvic rest for 6 weeks.) Shower Restrictions: No Driving Restrictions: No Weight Bearing: Full Weight No Smoking: If you smoke, Please STOP! Call for help. Follow-up with: Summer Bullock MD [Provider Admit Priv/Credential] -
--- NOTE | 2023-04-20 20:11 | DISCHARGE SUMMARY ---
"Discharge Summary Admit Date: 04/17/23 Discharge Date: 04/20/23 Discharging Provider: Summer Bullock MD Code Status: Attempt Resuscitation Condition at Discharge: Good - DIAGNOSES Admission Diagnoses: twin at term. 4 prior c sections. Discharge Diagnoses with Status of Each Condition: s/p c section for di/di twin - recovering well. morbidly obese prior c section x 4. - HPI History of Present Illness: di/di twin here for repeat c section. does not desire sterilization. here for delivery. complicated only by obesity, twins, prior c sections. - CONSULTS | PROCEDURES Procedures: repeat low transverse c section - HOSPITAL COURSE Hospital Course: Csection performed without complication. Patient declined sterilization. Post operative course was uncomplicated and she was discharged home on POD #3. Juan Luis acosta by time of discharge were feeding well from her breast. Baby A: Girl Apgars 8/9 with meconium in her fluid. weight 2665 gm, named Lyn Baby B: Boy Apgars 8/9, clear fluid, weight 3110 gm, named Ever. - ALLERGIES Allergies/Adverse Reactions: Allergies Allergy/AdvReac Type Severity Reaction Status Date / Time latex Allergy Mild Itching Verified 04/17/23 13:47 - MEDICATIONS Home Medications: Ambulatory Orders Medication Instructions Recorded Confirmed Ferrous Sulfate 325 mg ORAL DAILY 04/17/23 04/17/23 Fluoxetine HCl 10 mg ORAL DAILY 04/17/23 04/17/23 buPROPion HCL [Bupropion Xl] 150 mg ORAL DAILY 04/17/23 04/18/23 Acetaminophen 650 mg PO Q4HR PRN #30 ea 04/20/23 Cholecalciferol (Vitamin D3) 5,000 unit PO DAILY #365 tab 04/20/23 [Vitamin D3] Docusate Sodium 100Mg Capsule 100 - 200 mg PO BID PRN #60 cap 04/20/23 [Colace 100Mg Capsule] Ibuprofen [Motrin] 600 mg PO Q6H PRN #30 tab 04/20/23 Vit No.180/Iron/Folic 1 each PO DAILY #100 tablet 04/20/23 [ Plus Tablet] oxyCODONE [Roxicodone] 5 mg PO Q4HR PRN #10 tab 04/20/23 - PHYSICAL EXAM AT DISCHARGE General Appearance: positive: No acute distress Abdomen: positive: Non-tender - LABS Result Diagrams: 04/18/23 05:50 04/17/23 07:28 - FOLLOW UP Follow Up: in Clinic 1 week - TIME SPENT Time Spent in Discharge (Minutes): 30"
== END 2023-04-20 14:18 | disposition home or self-care (01) | DRG 787 ==
LOC: FBP 07:21
PROVIDERS: ADMIT Obstetrics & Gynecology; ATTEND Obstetrics & Gynecology
PROC: 10D00Z1 Extraction of Products of Conception, Low, Open Approach (ICD-10-PCS; principal; 2023-04-17 07:30)
DX: O34.211 Maternal care for low transverse scar from previous cesarean delivery (principal); O98.32 Other infections with a predominantly sexual mode of transmission complicating childbirth; A60.09 Herpesviral infection of other urogenital tract; Z3A.38 38 weeks gestation of pregnancy; Z37.2 Twins, both liveborn; O99.214 Obesity complicating childbirth; E66.01 Morbid (severe) obesity due to excess calories; O77.0 Labor and delivery complicated by meconium in amniotic fluid; O99.344 Other mental disorders complicating childbirth; F32.A Depression, unspecified; F41.9 Anxiety disorder, unspecified; O99.824 Streptococcus B carrier state complicating childbirth; Z79.899 Other long term (current) drug therapy
CPT/HCPCS: 36415; 80053; 81001; 85025; 85027; 86850; 86900; 86901; 86920; 90716